=== PATIENT | male | born 2000 | race Caucasian/White ===

== ENCOUNTER 2021-01-25 17:01 | Emergency (ER) | payer OTHER ==
[~2021-01-25] VITALS: Ht 182.9 cm; Wt 75.5 kg
[2021-01-25 17:02] VITALS: BP 127/66
[2021-01-25] MEDS ORDERED: MAGIC MOUTHWASH SUSPENSION BTL SS STA (17:43)
[2021-01-25] MEDS ORDERED: IBUPROFEN 600MG TAB PO ONE (17:45)
[2021-01-25 18:45] LABS: MONO REFLEX EBV COMP NEGATIVE (NEGATIVE)
[2021-01-25 18:52] LABS: RSV AMPLIFICATION NEGATIVE (NEGATIVE)
== END 2021-01-25 19:26 | disposition home or self-care (01) ==
LOC: M ED 17:01
DX: U07.1 COVID-19 (principal); R07.0 Pain in throat; Z20.828 Contact with and (suspected) exposure to other viral communicable diseases

== ENCOUNTER 2021-11-14 16:56 | Emergency (ER) | payer OTHER ==
[~2021-11-14] VITALS: Ht 182.9 cm; Wt 80.8 kg
[2021-11-14] MEDS ORDERED: ACETAMINOPHEN TAB 650MG DOSE (2X325MG) PO ONE (20:35)
[2021-11-14 21:02] LABS: BASO % 0.5 % (0.0-1.0); HEMATOCRIT 45.2 % (42.0-52.0); LYMPH # 3.2 10^3/uL (1.5-5.0); LYMPH % 41.2 % (24.0-44.0); MEAN CORPUSCULAR HEMOGLOBIN 29.6 pg (27.0-33.0); MEAN CORPUSCULAR HGB CONC 33.2 g/dl (32.0-36.5); MEAN CORPUSCULAR VOLUME 89.3 fl (80.0-96.0); MONO # 0.4 10^3/uL (0.0-0.8); MONO % 5.1 % (2.0-8.0); NEUTROPHILS # 4.1 10^3/uL (1.5-8.5); NEUTROPHILS % 52.9 % (36.0-66.0); PLATELET COUNT, AUTOMATED 211 10^3/uL (150-450); RED BLOOD COUNT 5.06 10^6/uL (4.30-6.10); WHITE BLOOD COUNT 7.8 10^3/uL (4.0-10.0)
[2021-11-14 21:26] LABS: BLOOD UREA NITROGEN 12 MG/DL (7-18); CALCIUM LEVEL 9.4 MG/DL (8.5-10.1); CARBON DIOXIDE LEVEL 26 MEQ/L (21-32); CHLORIDE LEVEL 105 MEQ/L (98-107); CREATININE FOR GFR 1.25 MG/DL (0.70-1.30); GLOMERULAR FILTRATION RATE > 60.0 (>60); GLUCOSE, FASTING 102 MG/DL (70-100); SODIUM LEVEL 138 MEQ/L (136-145)
[2021-11-14] MEDS ORDERED: CEFDINIR 300 MG CAP (OMNICEF) PO ONE (23:05)
[2021-11-14] MEDS ORDERED: ZITHTAB PO (23:05)
[2021-11-14] MEDS ORDERED: CEFD300C41 PO (23:05)
[2021-11-14 23:35] VITALS: BP 132/64
== END 2021-11-14 23:37 | disposition home or self-care (01) ==
LOC: M ED 16:56
DX: R50.9 Fever, unspecified (principal); R05.9 Cough, unspecified